=== PATIENT | male | born 1930 | race Caucasian/White ===

== ENCOUNTER 2020-08-27 10:41 | Emergency (ER) | payer MEDICARE ==
--- NOTE | 2020-08-27 10:53 | ED ---
Fall HPI - General Stated Complaint: Fall, Hip injury Time Seen by Provider: 08/27/20 10:41 - History of Present Illness Initial Comments: This is an 89-year-old male who states he was putting his pants on this morning when he got his left leg and successfully billing with right leg and he fell he fell on his right side now complains right hip pain. He was brought in by EMS he does have some shortening or lateral rotation of the right lower extremity he denies any head neck or back pain or any other injury. Patient is hard of hearing but otherwise the presentation is unremarkable MD Complaint: fall - Related Data Allergies Allergy/AdvReac Type Severity Reaction Status Date / Time No Known Allergies Allergy Verified 08/27/20 10:54 Review of Systems ROS Statement: Those systems with pertinent positive or pertinent negative responses have been documented in the HPI. ROS Other: All systems not noted in ROS Statement are negative. General Exam - General Exam Comments Initial Comments: This is a well-developed well-nourished awake alert oriented 4 male with a [place] Coma Scale of 15 General appearance: alert, in no apparent distress Head exam: Present: atraumatic, normocephalic, normal inspection Eye exam: Present: normal appearance, PERRL, EOMI. Absent: scleral icterus, conjunctival injection, periorbital swelling ENT exam: Present: normal exam, mucous membranes moist Neck exam: Present: normal inspection, full ROM, other (No stridor JVD or bruits). Absent: tenderness, meningismus, lymphadenopathy Respiratory exam: Present: normal lung sounds bilaterally. Absent: respiratory distress, wheezes, rales, rhonchi, stridor Cardiovascular Exam: Present: regular rate, normal rhythm, normal heart sounds. Absent: systolic murmur, diastolic murmur, rubs, gallop, clicks GI/Abdominal exam: Present: soft, normal bowel sounds. Absent: distended, tenderness, guarding, rebound, rigid Extremities exam: Present: tenderness, normal capillary refill, other (Tenderness palpation over the right hip with evidence of shortening and lateral rotation no pain anywhere else on examination lower extremities). Absent: pedal edema, joint swelling, calf tenderness Back exam: Present: normal inspection Neurological exam: Present: alert, oriented X3, CN II-XII intact Psychiatric exam: Present: normal affect, normal mood Skin exam: Present: warm, dry, intact, normal color. Absent: rash Course Vital Signs 08/27/20 08/27/20 08/27/20 10:43 11:38 12:23 Temperature 96.9 F L Pulse Rate 60 57 L 57 L Respiratory 16 18 18 Rate Blood Pressure 163/88 140/75 140/75 O2 Sat by Pulse 96 93 L 94 L Oximetry - Reevaluation(s) Reevaluation #1: 08/27/20 10:53 The patient was offered pain medication and does not have pain at this time he states and does not want any pain medication. Medical Decision Making - Medical Decision Making I did discuss findings the patient family members they've requested transfer to [facility] and would like to services of Dr. Robb. I did discuss the case with Dr. Hartley in the emergency department [facility] and was agreed to set the patient in transfer the patient will be transferred via EMS. - Radiology Data Radiology results: report reviewed (Imaging reviewed there is a right hip femoral neck fracture), image reviewed Disposition Clinical Impression: Closed right hip fracture, Fall Disposition: OTHER INSTITUTION NOT DEFINED Condition: Stable Is patient prescribed a controlled substance at d/c from ED?: No Referrals: Miguel San MD [Primary Care Provider] - 1-2 days - Out of Hospital Transfer - Req. Specs Out of Hospital Transfer - Requested Specifics: Other Emergency Center
[2020-08-27 11:42] VITALS: BP 140/75; PULSE 57; RESP 18
--- NOTE | 2020-08-27 12:16 | XR ---
EXAMINATION TYPE: XR Hip RT and AP Pelvis DATE OF EXAM: 08/27/2020 COMPARISON: CT 01/22/2010 HISTORY: Trauma and pain TECHNIQUE: A single AP view of the pelvis is obtained. Two views of the right hip are obtained. FINDINGS: There is a right femoral neck fracture present with resulting varus deformity. No evident d islocation. Surgical leila present in the pelvis. Degenerative disc changes are present lower lumba r spine. Sacralization of L5 suspected on the right. impression: Right femoral neck fracture
--- NOTE | 2020-08-27 12:17 | XR ---
EXAMINATION TYPE: XR chest 1V DATE OF EXAM: 08/27/2020 COMPARISON: NONE HISTORY: Preop, trauma and pain TECHNIQUE: Single frontal view of the chest is obtained. FINDINGS: There is no focal air space opacity, pleural effusion, or pneumothorax seen. The cardiac silhouette size is enlarged, the right hemidiaphragm is elevated and aorta is dense. There is a gene rator in left pectoral region, leads are present right atrium and ventricle The osseous structures ar e intact. IMPRESSION: Cardiomegaly, appearance may be accentuated by technique.
[2020-08-27 14:55] VITALS: TEMP 97
== END 2020-08-27 13:00 | disposition other institution (70) ==
LOC: SUPCPDRO 10:41 → EC 10:41
DX: S72.001A Fracture of unspecified part of neck of right femur, initial encounter for closed fracture (principal); W01.0XXA Fall on same level from slipping, tripping and stumbling without subsequent striking against object, initial encounter
CPT/HCPCS: 71045; 73502; 99285

== ENCOUNTER 2021-01-08 14:28 | Emergency (ER) | payer MEDICARE ==
[2021-01-08 16:13] VITALS: BP 114/68; PULSE 70; RESP 18; TEMP 98.3
--- NOTE | 2021-01-08 16:30 | ED ---
General Adult HPI - General Chief complaint: ENT Stated complaint: Qtip broke off in ear Time Seen by Provider: 01/08/21 16:23 Source: patient Mode of arrival: wheelchair Limitations: no limitations - History of Present Illness Initial comments: Dictation was produced using [employer] dictation software. please excuse any grammatical, word or spelling errors. Chief Complaint: 89-year-old male presents with left ear foreign body History of Present Illness: Nava is an 89-year-old male who presents to the emergency department for left ear foreign body. He is cleaning his ear this morning with a wooden Q-tip. States that the tip of the Qtip broke and it is stuck in his ear. He wears hearing aids on both sides. He has no other compl aints. The ROS documented in this emergency department record has been reviewed and confirmed by me. Those systems with pertinent positive or negative responses have been documented in the HPI. All other systems are other negative and/or noncontributory. PHYSICAL EXAM: General Impression: Alert and oriented x3, not in acute distress HEENT: Normocephalic atraumatic, extra-ocular movements intact, pupils equal and reactive to light bilaterally, mucous membranes moist. Left ear: There is the tip of the Q-tip and external auditory canal Cardiovascular: Heart regular rate and rhythm Chest: Able to complete full sentences, no retractions, no tachypnea Motor: no focal deficits noted Neurological: CN II-XII grossly intact, no focal motor or sensory deficits noted Skin: Intact with no visualized rashes Psych: Normal affect and mood ED course: 89 y Old male presents with left ear foreign body. Left ear foreign body was removed using tweezers. Vital signs stable. No other complaints. Patient discharged. - Related Data Allergies Allergy/AdvReac Type Severity Reaction Status Date / Time No Known Allergies Allergy Verified 08/27/20 10:54 Review of Systems ROS Statement: Those systems with pertinent positive or pertinent negative responses have been documented in the HPI. ROS Other: All systems not noted in ROS Statement are negative. Past Medical History Past Medical History: Hypertension Additional Past Medical History / Comment(s): hypothyroidism History of Any Multi-Drug Resistant Organisms: None Reported Additional Past Surgical History / Comment(s): bilateral knee replacement Past Psychological History: No Psychological Hx Reported Smoking Status: Former smoker Past Alcohol Use History: None Reported Past Drug Use History: None Reported General Exam Limitations: no limitations Course Vital Signs 01/08/21 16:07 Temperature 98.3 F Pulse Rate 70 Respiratory 18 Rate Blood Pressure 114/68 O2 Sat by Pulse 95 Oximetry Procedures - Foreign Body Removal Ear Location: ear canal (L) Foreign Body Suspected: other (tip of wooden qtip) Foreign Body Removed: yes Foreign Body Removal Technique: instrumentation Tympanic Membrane Intact: Yes Patient Tolerated Procedure: well Complications: none Disposition Clinical Impression: Ear foreign body Disposition: HOME SELF-CARE Condition: Good Instructions (If sedation given, give patient instructions): Ear Foreign Body (ED) Is patient prescribed a controlled substance at d/c from ED?: No Referrals: Leandro Alvarenga MD [Primary Care Provider] - 1-2 days
== END 2021-01-08 16:39 | disposition home or self-care (01) ==
LOC: EC 14:28
DX: T16.2XXA Foreign body in left ear, initial encounter (principal); I10 Essential (primary) hypertension; E03.9 Hypothyroidism, unspecified; Z87.891 Personal history of nicotine dependence; Z96.653 Presence of artificial knee joint, bilateral; X58.XXXA Exposure to other specified factors, initial encounter
CPT/HCPCS: 69200; 99282